=== PATIENT | female | born 1975 | race Caucasian/White ===

== ENCOUNTER → 2017-02-11 | Outpatient (CLI) | payer OTHER ==
--- NOTE | 2017-02-11 14:21 | US ---
EXAMINATION TYPE: US transvaginal DATE OF EXAM: 02/11/2017 COMPARISON: Previous study dated 04/23/2014. CLINICAL HISTORY: N92.6 Irregular menstruation, unspecified. Irregular vaginal bleeding/spotting TECHNIQUE: Transvaginal (TV) Date of LMP: Unknown due to abnormal vaginal bleeding EXAM MEASUREMENTS: Uterus: 9.3 x 3.9 x 4.7 cm Endometrial Stripe: 1.1 cm Right Ovary: 4.0 x 2.6 x 2.1 cm Left Ovary: 2.6 x 2.1 x 1.7 cm 1. Uterus: Anteverted Heterogeneous 2. Endometrium: Heterogeneous with cystic areas 3. Right Ovary: Complex cystic lesion= 2.1 x 1.7 x 1.8 cm 4. Left Ovary: wnl 5. Bilateral Adnexa: wnl 6. Posterior cul-de-sac: wnl IMPRESSION: 1. UTERUS IS SLIGHTLY HETEROGENOUS. THIS MAY REFLECT ADENOMYOSIS. 2. 2.1 CM COMPLEX RIGHT OVARIAN CYST.
== END | disposition home or self-care (01) ==
LOC: RADUSWWP 13:44
PROVIDERS: ATTEND Obstetrics & Gynecology
DX: N83.291 Other ovarian cyst, right side (principal); N85.9 Noninflammatory disorder of uterus, unspecified
CPT/HCPCS: 76830

== ENCOUNTER → 2018-11-05 | Outpatient (CLI) | payer OTHER ==
--- NOTE | 2018-11-05 13:43 | CT ---
EXAMINATION TYPE: CT abdomen pelvis wo/w con DATE OF EXAM: 11/05/2018 HISTORY: Abdominal pain unspecified per order. Left flank pain per patient. CT DLP: 885.6mGycm Automated Exposure Control for Dose Reduction was Utilized. CONTRAST: CT scan of the abdomen and pelvis is performed with oral and without and with IV Contrast, patient in jected with 100 mL of Isovue 300. COMPARISON: CT abdomen pelvis April 29, 2015 FINDINGS: LUNG BASES: Dependent atelectasis both bases is present. There is central left mid lung linear scarri ng or atelectasis. LIVER/GB: No significant abnormality is appreciated. PANCREAS: No significant abnormality is seen. SPLEEN: No significant abnormality is seen. ADRENALS: No significant abnormality is seen. KIDNEYS: Noncontrast images show 2 mm calculus right kidney coronal image 54 mid pole level posterior ly. Postcontrast images show symmetric cortical medullary uptake and excretion without concerning annamaria id or cystic renal mass or hydronephrosis bilaterally. No intraluminal calculus and bladder is presen t. BOWEL: Oral contrast is seen extending to the left lower quadrant distal left colon. There is no susp icious small or large bowel dilatation. There is normal contrast filled appendix ascending from cecum . There is mild wall thickening in the sigmoid colon. Finding presumed product of poor distention, a mild colitis should be excluded clinically. There is rare colonic diverticula, there is no CT evidenc e for acute diverticulitis UTERUS/ADNEXA: Anteverted uterus is seen. Both ovaries are noted axial image 78, they are normal in s ize. There is prominence of the lower uterine segment/cervix near axial image 74 redemonstrated not s ignificantly changed from prior presumed normal variant. LYMPH NODES: No greater than 1cm abdominal or pelvic lymph nodes are appreciated. OSSEOUS STRUCTURES: No significant abnormality is seen. OTHER: No significant additional abnormality is seen. IMPRESSION: There is better visualization of 2 mm nonobstructing right renal calculus. No left-sided renal calculi or hydronephrosis is clearly seen. No new or acute finding is identified to account for patient's symptoms of left-sided flank pain.
== END | disposition home or self-care (01) ==
LOC: RADCTMAIN 10:26
PROVIDERS: ATTEND Family Medicine
DX: N20.0 Calculus of kidney (principal)
CPT/HCPCS: 74178; Q9967

== ENCOUNTER → 2020-01-29 | Outpatient (CLI) | payer BC ==
--- NOTE | 2020-02-01 09:35 | MM ---
Reason for exam: screening (asymptomatic). Last mammogram was performed 3 years and 11 months ago. History: Took hormonal contraceptives for 20 years beginning at age 21. Physical Findings: A clinical breast exam by your physician is recommended on an annual basis and results should be correlated with mammographic findings. MG 3D Screening Mammo W/Cad Bilateral CC and MLO view(s) were taken. Prior study comparison: March 07, 2016, bilateral MG 3d screening mammo w/cad. The breast tissue is heterogeneously dense. This may lower the sensitivity of mammography. Finding: There is an intermediate concern, suspicious 8 mm high density, circumscribed oval mass located 4 cm from the nipple in the upper outer quadrant of the left breast consistent with possible cyst, mass. ASSESSMENT: Incomplete: need additional imaging evaluation, BI-RAD 0 RECOMMENDATION: Ultrasound of the left breast. [facility] will attempt to contact patient to return for ultrasound.
== END | disposition home or self-care (01) ==
LOC: RADMAMWWP 13:05
PROVIDERS: ATTEND Obstetrics & Gynecology
DX: Z12.31 Encounter for screening mammogram for malignant neoplasm of breast (principal)
CPT/HCPCS: 77063; 77067

== ENCOUNTER → 2020-02-04 | Outpatient (CLI) | payer BC ==
--- NOTE | 2020-02-04 14:02 | USB ---
Reason for exam: additional evaluation requested from abnormal screening. History: Took hormonal contraceptives for 20 years beginning at age 21. Physical Findings: Nurse Summary: patient states left breast soreness upper inner quadrant area, on and off for about 2 years now, nodular bilaterally (nurse TM). US Breast Workup LT Left complete breast ultrasound includes all four quadrants, the retroareolar region and axilla. Finding demonstrates a 0.8 x 0.5 x 0.3cm cystic lesion at 2 o'clock and a 0.3 x 0.3 x 0.2cm cystic lesion at 4 o'clock. These results were verbally communicated with the patient and result sheet given to the patient on 02/04/20. ASSESSMENT: Probably benign, BI-RAD 3 RECOMMENDATION: Ultrasound of the left breast in 6 months.
== END | disposition home or self-care (01) ==
LOC: RADUSWWP 12:57
PROVIDERS: ATTEND Obstetrics & Gynecology
DX: R92.8 Other abnormal and inconclusive findings on diagnostic imaging of breast (principal)

== ENCOUNTER → 2021-04-11 | Outpatient (CLI) | payer BC ==
--- NOTE | 2021-04-11 14:10 | MM ---
Reason for exam: additional evaluation requested from prior study. Last mammogram was performed 1 year and 2 months ago. History: Took hormonal contraceptives for 20 years beginning at age 21. Physical Findings: Nurse did not find any significant physical abnormalities on exam. MG 3D Diag Mammo W/Cad [facility] Bilateral CC and MLO view(s) were taken. Prior study comparison: January 29, 2020, bilateral MG 3d screening mammo w/cad. March 07, 2016, bilateral MG 3d screening mammo w/cad. Focal asymmetry. Previous nodule left upper outer quadrant resolved. No significant new findings when compared with previous films. These results were verbally communicated with the patient and result sheet given to the patient on 04/11/21. ASSESSMENT: Benign, BI-RAD 2 RECOMMENDATION: Routine screening mammogram of both breasts in 1 year.
--- NOTE | 2021-04-11 14:12 | USB ---
Reason for exam: additional evaluation requested from abnormal screening. History: Took hormonal contraceptives for 20 years beginning at age 21. US Breast Limited LT Technologist: Jerrica Sierra Left limited breast ultrasound including focal area of concern, retroareolar and axilla demonstrates a 0.3 x 0.3 x 0.2cm cystic lesion at 4 o'clock, too small to characterize, collapsing cyst from 02/04/20 and a 0.6cm short axis lymph node at the axilla. Scanned 12-4 o'clock. These results were verbally communicated with the patient and result sheet given to the patient on 04/11/21. ASSESSMENT: Probably benign, BI-RAD 3 RECOMMENDATION: Ultrasound of the left breast in 6 months. (4 o'clock location)
== END | disposition home or self-care (01) ==
LOC: RADMAMWWP 12:53
PROVIDERS: ATTEND Obstetrics & Gynecology
DX: N60.02 Solitary cyst of left breast (principal); Z79.3 Long term (current) use of hormonal contraceptives
CPT/HCPCS: 77062; 77066

== ENCOUNTER → 2022-01-15 | Outpatient (CLI) | payer BC ==
--- NOTE | 2022-01-15 10:47 | USB ---
Reason for Exam: Follow-up at short interval from prior study. Patient History: Menarche at age 15. First Full-Term at age 25. Hormonal Contraceptives for 20 years from age 21 until age 41. Risk Values: Ivis 5 year model risk: 0.7%. NCI Lifetime model risk: 8.7%. Technique: Method: Targeted. Prior Study Comparison: 03/07/2016 Bilateral Screening Mammogram, [facility]. 01/29/2020 Bilateral Screening Mammogram, [facility]. 04/11/2021 Bilateral Diagnostic Mammogram, [facility]. Findings: The lateral section of the breast of the left breast was scanned. Finding 1: Simple cyst. Laterality: Left. Size 4 x 2 x 3 mm. 3 O'clock Quadrant: Upper outer. 3 cm cm from nipple. Shape: Round or Oval. Margin: Circumscribed (Well-Defined or Sharply-Defined). 3 cm in the nipple there is a hypoechoic area measuring 0.4 x 0.2 x 0.3 cm previously this is too small to clearly identify as a simple cyst. This appears cystlike at the 3:00 position. This does not correlate with the prior ultrasound which had a lesion at the 4:00 BC position. The prior lesion is not identified in the current exam. Overall Assessment: Probably benign, BI-RAD 3 Management: Diagnostic Mammogram of both breasts in 3 months. A clinical breast exam by your physician is recommended on an annual basis and results should be correlated with mammographic findings. Patient should continue monthly self breast exam. Clinical consideration for follow-up ultrasound time of mammography be performed. Electronically signed and approved by: Tay Hines D.O. Radiologis
== END | disposition home or self-care (01) ==
LOC: RADUSWWP 10:01
PROVIDERS: ATTEND Family Medicine
DX: N60.02 Solitary cyst of left breast (principal)

== ENCOUNTER → 2022-12-26 | Outpatient (CLI) | payer OTHER ==
--- NOTE | 2022-12-27 20:04 | MM ---
Reason for Exam: Screening (asymptomatic). Last mammogram was performed 1 year(s) and 9 month(s) ago. Patient History: Menarche at age 15. First Full-Term at age 25. Hormonal Contraceptives for 20 years from age 21 until age 41. Last menstrual period: 09/19/2022 Risk Values: Ivis 5 year model risk: 0.7%. NCI Lifetime model risk: 8.6%. Prior Study Comparison: 03/07/2016 Bilateral Screening Mammogram, [facility]. 01/29/2020 Bilateral Screening Mammogram, [facility]. 04/11/2021 Bilateral Diagnostic Mammogram, [facility]. Tissue Density: There are scattered fibroglandular densities. Findings: Analyzed By CAD. Unchanged global asymmetry upper-outer quadrant right breast. Tiny area of 3 mm isodense, circumscribed nodularity 8:00 left breast middle to posterior depth not clearly seen previously. Imaging characteristics suggest a benign etiology which can be reassessed in 6 months. Otherwise, there is no suspicious group of microcalcifications or new suspicious mass in either breast. Overall Assessment: Probably benign, BI-RAD 3 Management: Diagnostic Mammogram of the left breast in 6 months. . Patient should continue monthly self-breast exams. A clinical breast exam by your physician is recommended on an annual basis. This exam should not preclude additional follow-up of suspicious palpable abnormalities. Note on Ivis scores and lifetime risk: 1. A Ivis score greater than 3% is considered moderate risk. If this is the case, consider specialist referral to assess eligibility for a risk reducing agent. 2. If overall lifetime risk for the development of breast cancer is 20% or higher, the patient may qualify for future screening with alternating mammogram and breast MRI. Electronically signed and approved by: Ashley Laguerre M.D. Radiologist
== END | disposition home or self-care (01) ==
LOC: RADMAMWWP 10:41
PROVIDERS: ATTEND Family Medicine
DX: Z12.31 Encounter for screening mammogram for malignant neoplasm of breast (principal)
CPT/HCPCS: 77063; 77067

== ENCOUNTER → 2023-07-25 | Outpatient (CLI) | payer BC, OTHER ==
--- NOTE | 2023-07-25 13:34 | MM ---
Reason for Exam: Clinical finding. Last screening mammogram was performed 7 month(s) ago. Patient History: Menarche at age 15. First Full-Term at age 25. Perimenopausal. Hormonal Contraceptives for 20 years from age 21 until age 41. Risk Values: Ivis 5 year model risk: 0.7%. NCI Lifetime model risk: 8.6%. Tissue Density: There are scattered fibroglandular densities. Findings: Analyzed By CAD. Pattern appears stable. There is a focal asymmetry which is stable in the upper outer right breast. Small nodularities within the left breast appears stable from comparison. No significant interval changes. No suspicious groups of microcalcifications, spiculated or lobular masses, architectural distortion or other secondary signs of malignancy are mammographically apparent. Overall Assessment: Benign, BI-RAD 2 Management: Screening Mammogram of both breasts in 1 year. A negative mammogram report should not preclude additional follow up of suspicious palpable abnormalities. Patient should continue monthly self breast exam. A clinical breast exam by your physician is recommended on an annual basis and results should be correlated with mammographic findings. Electronically signed and approved by: Tay Hines D.O. Radiologis
== END | disposition home or self-care (01) ==
LOC: RADMAMWWP 13:03
PROVIDERS: ATTEND Family Medicine
DX: N60.02 Solitary cyst of left breast (principal); R92.323 Mammographic fibroglandular density, bilateral breasts
CPT/HCPCS: 77062; 77066

== ENCOUNTER → 2024-06-11 | Outpatient (CLI) | payer BC ==
--- NOTE | 2024-06-11 15:57 | US ---
EXAMINATION TYPE: US pelvis complete transvag DATE OF EXAM: 06/11/2024 COMPARISON: 02/11/2017 CLINICAL INDICATION: Female, 48 years old with history of N95.0 POST MENOPAUSAL BLEEDING; x 2-4 days - not heavy but more than spotting TECHNIQUE: . Transabdominal grayscale sonographic images of the pelvis were acquired. Transvaginal sonographic im ages were medically necessary to better assess the following anatomy: Endometrium Doppler imaging: Not performed. FINDINGS: Date of LMP: about 2 years ago EXAM MEASUREMENTS: Uterus: 8.5 x 3.7 x 4.6 cm Endometrial Stripe: 0.6 cm Right Ovary: 3.0 x 1.6 x 1.7 cm Left Ovary: 1.7 x 1.0 x 1.7 cm 1. Uterus: Anteverted Herterogenous area seen anterior lower uterine segment = 2.0 x 1.7 x 1.7 cm 2. Endometrium: Minimally thickened. 3. Right Ovary: wnl 4. Left Ovary: wnl 5. Bilateral Adnexa: wnl 6. Posterior cul-de-sac: wnl Anteverted uterus with heterogenous hypoechoic lesion with the anterior lower uterine segment measuri ng up to 2.0 cm consistent with an intramural fibroid. Endometrium is minimally thickened measuring up to 0.6 cm. Both ovaries appear unremarkable. No free fluid. IMPRESSION: 1. Minimal thickening of the endometrium in a postmenopausal patient measuring up to 0.6 cm. Raises p ossibility of endometrial hyperplasia versus carcinoma versus other. Direct visualization is recommen ded. 2. Fibroid changes of the uterus. [facility], , 06/11/2024 3:55 PM
== END | disposition home or self-care (01) ==
LOC: RADUSWWP 15:18
PROVIDERS: ATTEND Family Medicine
DX: D25.9 Leiomyoma of uterus, unspecified (principal); N95.0 Postmenopausal bleeding; Z78.0 Asymptomatic menopausal state
CPT/HCPCS: 76830; 76856

== ENCOUNTER → 2024-10-09 | Outpatient (CLI) | payer BC ==
--- NOTE | 2024-10-09 16:20 | CA ---
Transthoracic Echo Report Name: Angelika Erickson Age: 48 Gender: F : 1975 Exam Date: 10/09/2024 14:33 Exam Location: [facility] Ht (in): 664 Wt (lb): 10 Ordering Physician: Sam Chen MD Attending/Referring Phys: Claribel Banuelos [facility] [employer] Tailor Rosio Young RDCS Procedure CPT: Indications: I51.7 Cardiomegaly Cardiac Hx: Technical Quality: Good Contrast 1: Total Dose (mL): Contrast 2: Total Dose (mL): MEASUREMENTS (Male / Female) Normal Values 2D ECHO LV Diastolic Diameter PLAX 4.1 cm 4.2 - 5.9 / 3.9 - 5.3 cm LV Systolic Diameter PLAX 2.6 cm IVS Diastolic Thickness 0.9 cm 0.6 - 1.0 / 0.6 - 0.9 cm LVPW Diastolic Thickness 0.9 cm 0.6 - 1.0 / 0.6 - 0.9 cm LV Relative Wall Thickness 0.4 LVOT Diameter 2.1 cm Aortic Root Diameter 2.7 cm LV Diastolic Volume MOD BP 87.0 cm??? 67 - 155 / 56 - 104 cm??? LV Systolic Volume MOD BP 37.4 cm??? 22 - 58 / 19 - 49 cm??? LV Ejection Fraction MOD BP 57.0 % >= 55 % LV Cardiac Index MOD BP 3240.3 cm???/min???m??? LV Diastolic Volume MOD 4C 83.1 cm??? LV Systolic Volume MOD 4C 35.5 cm??? LV Ejection Fraction MOD 4C 57.3 % LV Cardiac Index MOD 4C 3109.9 cm???/min???m??? LV Diastolic Length 4C 8.5 cm LV Systolic Length 4C 7.1 cm LV Diastolic Volume MOD 2C 87.7 cm??? LV Systolic Volume MOD 2C 37.8 cm??? LV Ejection Fraction MOD 2C 56.9 % LV Cardiac Index MOD 2C 3261.5 cm???/min???m??? LV Diastolic Length 2C 8.2 cm LV Systolic Length 2C 6.8 cm Ascending Aorta Diameter 3.3 cm DOPPLER AV Peak Velocity 106.4 cm/s AV Peak Gradient 4.5 mmHg AV Mean Velocity 66.1 cm/s AV Mean Gradient 2.1 mmHg AV Velocity Time Integral 18.9 cm LVOT Peak Velocity 90.3 cm/s LVOT Peak Gradient 3.3 mmHg LVOT Velocity Time Integral 17.5 cm LVOT Stroke Volume 59.3 cm??? LVOT Stroke Volume Index 19.9 ml/m??? LVOT Cardiac Index 3874.9 cm???/min???m??? AV Area Cont Eq vti 3.1 cm??? AV Area Cont Eq pk 2.9 cm??? Mitral E Point Velocity 48.3 cm/s Mitral A Point Velocity 38.6 cm/s Mitral E to A Ratio 1.3 MV Deceleration Time 189.5 ms MV E' Velocity 8.2 cm/s Mitral E to MV E' Ratio 5.9 PV Peak Velocity 74.0 cm/s PV Peak Gradient 2.2 mmHg FINDINGS Left Ventricle Left ventricular ejection fraction is estimated at 55-60 %. Left ventricular cavity size normal. Left ventricular wall thickness normal. No obvious regional wall motion abnormalities. Right Ventricle Normal right ventricular size and function. Unable to estimate the right ventricular systolic pressure. Right Atrium Normal right atrial size. Left Atrium Normal left atrial size. Mitral Valve Structurally normal mitral valve. No mitral stenosis, regurgitation or prolapse. Aortic Valve Trileaflet aortic valve. No aortic valve stenosis or regurgitation. Tricuspid Valve Structurally normal tricuspid valve. No tricuspid stenosis. Trace tricuspid regurgitation. Pulmonic Valve Structurally normal pulmonic valve. No pulmonic stenosis. Trace pulmonic regurgitation. Pericardium No pericardial effusion. Aorta Normal size aortic root and proximal ascending aorta. CONCLUSIONS Normal LV size and systolic function. No significant abnormality on the Doppler exam. No pericardial effusion Previewed by: Dr. Josephine Lugo MD (Electronically Signed) Final Date: 09 October 2024 16:19
== END | disposition home or self-care (01) ==
LOC: RADECHMAIN 14:19
PROVIDERS: ATTEND Family Medicine
DX: I51.7 Cardiomegaly (principal)
CPT/HCPCS: 93306

== ENCOUNTER → 2024-10-09 | Outpatient (CLI) | payer BC ==
--- NOTE | 2024-10-09 14:53 | MM ---
Reason for Exam: Screening (asymptomatic). Last mammogram was performed 1 year(s) and 2 month(s) ago. Patient History: Menarche at age 15. First Full-Term at age 25. Perimenopausal. Hormonal Contraceptives for 20 years from age 21 until age 41. Risk Values: Ivis 5 year model risk: 0.8%. NCI Lifetime model risk: 8.5%. Prior Study Comparison: 04/11/2021 Bilateral Diagnostic Mammogram, [facility]. 12/26/2022 Bilateral MG 3D screening mammo w/cad, [facility]. 07/25/2023 Bilateral MG 3D diag mammo w/cad [facility], [facility]. Tissue Density: There are scattered areas of fibroglandular density. Findings: Analyzed By CAD. Asymmetric prominent tissue upper-outer aspect right breast is redemonstrated. Benign-appearing bilateral axillary lymph nodes are again seen. There is no suspicious new group of microcalcifications or new suspicious mass in either breast. Overall Assessment: Negative, BI-RAD 1 Management: Screening Mammogram of both breasts in 1 year. . Patient should continue monthly self-breast exams. A clinical breast exam by your physician is recommended on an annual basis. This exam should not preclude additional follow-up of suspicious palpable abnormalities. Note on Ivis scores and lifetime risk: 1. A Ivis score greater than 3% is considered moderate risk. If this is the case, consider specialist referral to assess eligibility for a risk reducing agent. 2. If overall lifetime risk for the development of breast cancer is 20% or higher, the patient may qualify for future screening with alternating mammogram and breast MRI. [facility], , 10/09/2024 2:49 PM. Electronically signed and approved by: Hossein Qureshi M.D.
== END | disposition home or self-care (01) ==
LOC: RADMAMWWP 13:22
PROVIDERS: ATTEND Family Medicine
DX: Z12.31 Encounter for screening mammogram for malignant neoplasm of breast (principal); R92.323 Mammographic fibroglandular density, bilateral breasts; Z92.0 Personal history of contraception
CPT/HCPCS: 77063; 77067